=== PATIENT | female | born 1970 | race Caucasian/White ===

== ENCOUNTER 2024-06-19 17:53 | Emergency (ER) | payer OTHER, SELFPAY ==
--- NOTE | ~2024-06-19 | XR_ITS ---
EXAMINATION: XR FOOT, RIGHT CLINICAL INFORMATION: pain COMPARISON: None available. TECHNIQUE: AP, lateral, and oblique views of the right foot. FINDINGS: There is no fracture or dislocation. There is mild cortical irregularity and sclerosis along the lateral aspect of the first metatarsal bone of uncertain clinical significance/etiology. This may be related to prior bunion surgery. Clinical correlation is recommended. Joint spaces are maintained. Regional soft tissue is normal in appearance. XR/XR foot RT min 3V IMPRESSION: No fracture or dislocation. There is mild cortical irregularity and sclerosis along the lateral aspect of the first metatarsal bone of uncertain clinical significance/etiology. This may be related to prior bunion surgery. Clinical correlation is recommended. Electronically signed by: Bill Alfaro DO 06/19/2024 09:52 PM EST RP
--- OUTSIDE RECORDS SUMMARY | 2024-06-19 17:55 | XMS_ITS | Continuity of Care Document ---
Author Organization [facility] vices Address [address] [place] [address] Phone Care Team Providers Care Mechanic Industrial Truck Name Role Phone Generic Provider, [facility] Unavailable Unavailabl e Allergies, Adverse Reactions, Alerts Substance Reaction Status Criticality No Known Allergies Active No Inform ation Procedures Procedure Date Psychotherapy, 45 Minutes With Patient J Psych Dx Eval Psychotherapy, 30 Minutes With Patient A OFFICE/OUTPATIENT VISIT, [facility] Advance Directives Directive Yes / No Effective Date File Name No Information Encounters Encounter Description Practice Location Reason(s) For Visit Diagnoses Date Provider Providers Copied on Encounter [facility], [address] [place] [address], [facility], [place] tel:[phone] [facility] Adult Medicine No Information 0 Generic Provider [facility]. . Psychotherap y, 45 Minutes With Patient [facility], [address] [place] [address], [facility], tel:[phone] [facility] Behavioral Health Follow up visit (chief complaint) Major depressive disorder, recurrent, moderateAnxiety Opioid dependence 0-201 9 [address]Long Cintia. [address] [place], [address], [place]. tel:[phone] Psych Dx Eval [facility], [address] [place] [address], [facility], [place] tel:[phone] [facility] Behavioral Health anxiety (chief complaint) AnxietyOpioid dependence 4-201 9 [facility]Long Cintia. [address] [place] [address], [address], [place]. tel:[phone] Psychotherap y, 30 Minutes With Patient [facility], [address] [place], [address], [place] tel:[phone] [facility] Behavioral Health Consult (chief complaint) AnxietyOpioid dependence 9 Liz Cintia. [address] [place], [address], [place]. tel:[phone] OFFICE[facility]OUTPA TIENT VISIT, [facility], [address] [facility] [place], [address], [place] tel:[phone] [facility] Adult Medicine Fell in shower (chief complaint) Body mass index (BMI) 30.0-30.9, adultSyncope, unspecified syncope typeFrequent headachesPhysic al examScreening for lipid disordersScreen ing for thyroid disorderScreeni ng for diabetes mellitusMemory loss 9 No Information Family History Family Member Type Diagnosis Age At Onset No Information Payers Payer name Insurance type Covered republican ID Danika wise(s) Tobias [id number] Social History Type Description Quantity Date Captured [...] lives at home. She was [facility] and sent to neurology at but doesn't [...]
[2024-06-19 19:09] VITALS: BP 152/78; PULSE 76; RESP 18; TEMP 36.2; O2SAT 99; BMI 32.9
--- NOTE | 2024-06-19 19:13 | ED.LOWEXIN ---
HPI - Extremity Injury (Lower) General Chief Complaint: Extremity Injury, Lower Stated Complaint: rt heel/ankle sharp pain Time Seen by Provider: 06/19/24 19:18 Source: patient Limitations: no limitations History of Present Illness ED Provider: Zehra mendez PA-C HPI Narrative: 54-year-old female, who presents with right heel pain for 2 weeks. Pain originates over the plantar aspect of the heel and radiates upward toward the ankle. No preceding trauma, no overlying redness or swelling. Related Data Previous Rx's ?Medication ?Instructions ?Recorded meloxicam 15 mg tablet 15 mg PO DAILY #7 tabs 06/19/24 Allergies Allergy/AdvReac Type Severity Reaction Status Date / Time No Known Allergies Allergy Verified 06/19/24 19:26 Review of Systems Review of Systems: Yes all other systems are reviewed and are negative Constitutional: Constitutional: Denies fatigue and Denies fever(s) Musculoskeletal: Musculoskeletal: Denies arthralgias, Denies joint swelling, Denies numbness and Denies tingling Neurologic: Denies numbness and Denies tingling Endocrine: Endocrine: Denies fatigue PMF Past Medical History Attestation statement: The following information was validated with the patient. Social History Social History Advance Directives: No Advance Directives Information Provided: Yes Physical Exam Vital Signs: Vital Signs: Last Vital Signs Temp 97.2 F 06/19/24 19:09 Pulse 76 06/19/24 19:09 Resp 18 06/19/24 19:09 BP 152/78 H 06/19/24 19:09 Pulse Ox 99 06/19/24 19:09 O2 Del Method Room Air 06/19/24 19:09 BMI result Body Mass Index 32.9 Const: Other: Alert, well-appearing Orientation/consciousness: patient oriented x3 Resp: Other: Nonlabored respirations Cardio: Other: Normal peripheral perfusion Skin: Other: Warm dry no rash Neuro: Other: Antalgic gait secondary to foot pain General: patient oriented x3, no focal motor deficits and CN's II-XI intact bilaterally Extrem: Other: There was no swelling, erythema or warmth noted over the foot , full flexion and extension from the ankle, there was no deformity. Psych: Other: Calm cooperative Course Course Course Narrative: This is a rapid medical exam performed by Zehra Mendez PA-C. Patient is a 54-year-old female, who presents with right heel pain for 2 weeks. No preceding trauma, no overlying redness or swelling. On exam, again no warmth no erythema no swelling no deformity, we will obtain an x-ray, this is likely plantar fasciitis. The patient is hemodynamically stable and can return to the waiting room pending her full medical assessment. Medical Decision Making Medical Decision Making MDM Narrative: 54-year-old female, who presents with right heel pain for 2 weeks. Pain originates over the plantar aspect of the heel and radiates upward toward the ankle. No preceding trauma, no overlying redness or swelling. No relevant chronic issues History: Per patient I have considered the following differential diagnoses: Plantar fasciitis, bone spur/arthritis, septic effusion, fracture, dislocation Plan: This is likely plantar fasciitis, the patient does not wear supportive shoes, she walks around and Crocs. Tear on the side of caution we will obtain an x-ray, she could have significant arthritis and/or bone spur. Thought about septic effusion, however she has full flexion and extension of the ankle, there was no swelling or deformity. Unlikely to be a fracture or dislocation given no trauma. I have independently reviewed the following tests: X-ray right foot: No fracture, no dislocation no obvious bones spur Discharge Plan Discharge Clinical Impression: Plantar fasciitis, right Patient Disposition: Home, Self-Care Instructions: Plantar Fasciitis (ED), Plantar Fasciitis Exercises (ED) Additional Instructions: Your symptoms are likely due to plantar fasciitis. See home care instructions. You need to obtain a pair of supportive shoes such as running sneakers. Use the meloxicam as directed, this is an anti-inflammatory that we will help your pain. I have also provided you with exercises you can perform to help alleviate your discomfort. Follow up with your primary care provider as needed. Prescriptions: New meloxicam 15 mg tablet 15 mg PO DAILY Qty: 7 0RF Print Language: [place]
--- OUTSIDE RECORDS SUMMARY | 2024-06-19 20:08 | XMS_ITS | Continuity of Care Document ---
Author Organization [facility] vices Address [address] [place] [address] Phone Care Team Providers Care Spa Technician Name Role Phone Generic Provider, [facility] Unavailable Unavailabl e Allergies, Adverse Reactions, Alerts Substance Reaction Status Criticality No Known Allergies Active No Inform ation Procedures Procedure Date Psychotherapy, 45 Minutes With Patient J Psych Dx Eval Psychotherapy, 30 Minutes With Patient A OFFICE/OUTPATIENT VISIT, [facility] Advance Directives Directive Yes / No Effective Date File Name No Information Encounters Encounter Description Practice Location Reason(s) For Visit Diagnoses Date Provider Providers Copied on Encounter [facility], [address] [place] [address], [facility], [place] tel:[phone] [facility] Adult Medicine No Information 0 Generic Provider [facility]. . Psychotherap y, 45 Minutes With Patient [facility], [address] [place] [address], [facility], tel:[phone] [facility] Behavioral Health Follow up visit (chief complaint) Major depressive disorder, recurrent, moderateAnxiety Opioid dependence 0-201 9 Mario-Long Cintia. [address] [place], [address], [place]. tel:[phone] Psych Dx Eval [facility], [address] [place] [address], [facility], [place] tel:[phone] [facility] Behavioral Health anxiety (chief complaint) AnxietyOpioid dependence 4-201 9 Mario-Long Cintia. [address] [place] [address], [address], [place]. tel:[phone] Psychotherap y, 30 Minutes With Patient [facility], [address] [place], [address], [place] tel:[phone] [facility] Behavioral Health Consult (chief complaint) AnxietyOpioid dependence 9 Liz Cintia. [address] [place], [address], [place]. tel:[phone] OFFICE[facility]OUTPA [facility]ENT [facility], [facility] [address] [facility] [place] [place], [address], [place] tel:[phone] [facility] Adult Medicine Fell in shower (chief complaint) Body mass index (BMI) 30.0-30.9, adultSyncope, unspecified syncope typeFrequent headachesPhysic al examScreening for lipid disordersScreen ing for thyroid disorderScreeni ng for diabetes mellitusMemory loss 9 No Information Family History Family Member Type Diagnosis Age At Onset No Information Payers Payer name Insurance type Covered democrat ID Danika wise(s) Tobias [id number] Social History Type Description Quantity Date Captured [...] lives at home. She was seen by [facility] and sent to neurology at but [...]
--- NOTE | 2024-06-19 20:10 | PC.NURSE ---
triage for another pt was placed on this patient who had already been triaged. this was in error and has been removed.
[2024-06-19 20:56] VITALS: BP 152/78; PULSE 76; RESP 18; TEMP 36.2; O2SAT 99
== END 2024-06-19 21:03 | disposition home or self-care (01) ==
PROVIDERS: Emergency Provider Emergency Medicine
DX: M72.2 Plantar fascial fibromatosis (principal)
CPT/HCPCS: 73630; 99282; 99283

== ENCOUNTER 2024-08-25 13:01 | Emergency (ER) | payer OTHER, SELFPAY ==
--- NOTE | ~2024-08-25 | CT_ITS ---
CLINICAL HISTORY: CP, SOB, elevated D-dimer CT angiography chest with contrast. 3D Postprocessing. Comparison: None Findings: The heart size is normal. RV/LV ratio is normal. Unremarkable thoracic aorta and great vessels. No aneurysm. No pulmonary artery filling defects. The visualized thyroid and mediastinum are unremarkable. 4 mm right upper lobe nodule on image 19. No consolidation or pleural effusion. There is pancreatic volume loss. No acute abnormality of the visualized abdomen. The bones are intact. IMPRESSION: 1. No pulmonary artery embolism. 2. 4 mm right upper lobe nodule. If the patient is high risk, consider CT follow-up in 1 year. This document has been electronically signed by: Rajani Tran MD on 08/25/2024 14:57:20
--- NOTE | ~2024-08-25 | XR_ITS ---
CLINICAL HISTORY: cp 1 view chest x-ray Comparison: None Findings: No consolidation or effusion. Heart size is normal. No acute fracture. IMPRESSION: 1. No acute findings. This document has been electronically signed by: Rajani Tran MD on 08/25/2024 14:04:11
[2024-08-25 13:03] VITALS: BP 178/98; PULSE 105; O2SAT 100
--- NOTE | 2024-08-25 13:04 | ECG_ITS ---
Test Reason : CHEST PAIN Blood Pressure : */* mmHG Vent. Rate : 85 BPM Atrial Rate : 85 BPM P-R Int : 140 ms QRS Dur : 90 ms QT Int : 390 ms P-R-T Axes : 50 -31 24 degrees QTcB Int : 464 ms Normal sinus rhythm Left axis deviation Abnormal ECG When compared with ECG of 29-Mar-2003 16:32, QRS axis Shifted left Nonspecific T wave abnormality, improved in Lateral leads QT has lengthened Referred By: Generic ED Physician Electronically Signed By: CAROLYNN ARZATE
[2024-08-25 13:14] VITALS: BP 140/77; PULSE 90; RESP 20; TEMP 37.4; O2SAT 98; BMI 30.9
--- NOTE | 2024-08-25 13:14 | PC.NURSE ---
No EKG machine available to obtain <10min
--- NOTE | 2024-08-25 13:18 | ED_ITS ---
HPI - Chest Pain General Chief Complaint: Chest Pain Stated Complaint: CHEST PAIN Time Seen by Provider: 08/25/24 13:13 Source: patient, family and EMS Mode of arrival: EMS Limitations: no limitations History of Present Illness ED Provider: DR. Phoenix HPI narrative: This is a 54-year-old female came in by ambulance for evaluation of chest pain started since yesterday pain has been constant and got worse around 03:00 this morning pain is associated with some heaviness breath, patient also is complaining of headache, generalized body ache, joint ache, no coughing, no sneezing. No history of recent travel, no history of prolonged immobilization, lower extremity swelling or tenderness. No exposure to sick contacts. Related Data Previous Rx's ?Medication ?Instructions ?Recorded meloxicam 15 mg tablet 15 mg PO DAILY #7 tabs 06/19/24 Allergies Allergy/AdvReac Type Severity Reaction Status Date / Time No Known Allergies Allergy Verified 08/25/24 13:16 Review of Systems 2 Review of Systems: All other systems are reviewed and are negative Constitutional: Reports as per HPI and Reports no additional constitutional complaints Eyes: Reports as per HPI and Reports no additional eye complaints Reports system reviewed and no additional complaints, except as documented Cardiovascular: Reports as per HPI and Reports no additional cardiovascular complaints Respiratory: Reports as per HPI and Reports no additional respiratory complaints Gastrointestinal: Reports as per HPI and Reports no additional gastrointestinal complaints Genitourinary: Reports no additional female genitourinary complaints Musculoskeletal: Reports no additional musculoskeletal complaints Skin/Breast: Reports system reviewed and no additional complaints, except as docu Psychiatric: Reports no additional psychiatric complaints Endocrine: Reports no additional endocrine complaints Hematologic/Lymphatic: Reports no additional hematologic/lymphatic complaints Allergic/Immunologic: Reports no additional allergic/immunologic complaints Reports system reviewed and no additional complaints, except as documented and Reports Abnormal speech present [facility] Social History Social History Smoked in Last 30 Days: No Use of substances other than those prescribed or required for medical reasons: No Advance Directives: No Advance Directives Information Provided: Yes Physical Exam 2 Vital Signs: Vital Signs: Last Vital Signs Temp 99.3 F 08/25/24 14:59 Pulse 84 08/25/24 14:59 Resp 18 08/25/24 14:59 BP 131/67 08/25/24 14:59 Pulse Ox 98 08/25/24 14:59 O2 Del Method Room Air 08/25/24 14:59 BMI result Body Mass Index 30.9 Vital signs have been reviewed and appear to be correct. Blood pressure elevated. Heart rate normal. Respiratory rate normal. Temperature normal. Oxygen saturation normal. Appearance: Alert. Oriented X3. No acute distress. Head: Normal external exam. Normocephalic. Atraumatic. No Ramires signs noted. No raccoon eyes noted Eyes: PERRLA. EOMI. Conjunctiva and sclera normal. Eyelids normal. ENT: TM's Normal. Pharynx normal. Uvula midline. Moist mucous membranes. No trismus noted. No drooling noted. No muffled voice noted. Neck: Normal inspection. Neck supple. FROM. No adenopathy. Thyroid Normal. No meningeal signs. No neck mass noted. CVS: Normal heart rate and rhythm. Heart sound normal. No murmurs noted. Pulses normal throughout. Respiratory: No respiratory distress. Painless inspiration. Breath sounds normal. No wheezes/rales/rhonchi noted. Chest nontender. No accessory muscle usage noted or decreased air movement noted. Abdomen: Soft and nontender. Bowel sounds normal in all 4 quadrants. No distention noted. No organomegaly noted. No visible injury noted. Back: No CVA tenderness. Full range of motion noted. Skin: Skin warm and dry. Normal skin color. Normal skin turgor. No rashes/lesions/lacerations noted. Extremities: No lower extremity edema. Extremities exhibit normal range of motion. Extremities nontender. Neuro: Oriented X 3. Cranial nerve exam: II-XII are grossly intact No motor deficit. No sensory deficit. Reflexes normal. Course Reevaluation(s) Reevaluation #1: Atypical chest pain, physical exam reveals pain is originating from the chest wall. Negative CT angio for pulmonary embolism or any other intrathoracic pathology. Except for incidental 4 mm pulmonary nodule. ACS is not likely with negative troponin x2 and unremarkable EKG. Feels better with NSAIDs. 4 mm right upper lobe pulmonary nodule was incidentally found on the CT patient was instructed to follow-up with her PCP for follow-up. Time: 17:00 Medications Administered Discontinued Medications Generic Name Dose Route Start Last Admin Trade Name Freq PRN Reason Stop Dose Admin Ibuprofen 600 mg 08/25/24 17:12 08/25/24 17:22 Ibuprofen 600 Mg Tablet PO 08/25/24 17:13 600 mg ONCE ONE Administration Iohexol 65 ml 08/25/24 14:31 08/25/24 14:31 Iohexol 350 Mg/Ml 100 Ml Infus..Btl IV 08/25/24 14:32 65 ml ONCE ONE Administration Ondansetron HCl 4 mg 08/25/24 14:44 08/25/24 15:05 Ondansetron Hcl 4 Mg/2 Ml Vial IVPUSH 08/25/24 14:45 Not Given ONCE ONE Medical Decision Making Differential Diagnosis Differential Diagnoses: The differential diagnosis associated with the presentation includes (ACS, pulmonary embolism, pneumonia, pneumothorax, pleural effusion, chest wall pain, electrolyte derangement, severe anemia.) Admission/Observation Consideration of admission/observation: Escalation of care including admission/observation considered Lab Data MDM Lab Attestation statement: I reviewed the patient's lab results. 08/25/24 13:22 08/25/24 13:22 Labs: Lab Results 08/25/24 08/25/24 08/25/24 Range/Units 13:22 13:25 16:35 WBC 5.2 (4.8-10.8) X10*3/uL RBC 4.16 L (4.20-5.50) X10*6/uL Hgb 12.8 (12.0-16.0) g/dl Hct 36.6 L (37.0-47.0) % MCV 88.0 (80.0-98.0) fL MCH 30.8 (27.0-33.0) pg MCHC 35.0 (31.0-35.0) g/dl RDW 12.3 (11.0-16.0) % Plt Count 231 (160-400) X10*3/uL MPV 9.9 (9.4-12.3) fL Immature Gran % (Auto) 0.4 (0.0-0.4) % Neut % (Auto) 81.7 H (45-73) % Lymph % (Auto) 7.9 L (20-40) % [place] % (Auto) 9.6 (2-11) % Eos % (Auto) 0.0 (0-4) % Baso % (Auto) 0.4 (0-2) % Lymph # (Auto) 0.4 L (1.2-4.9) X10*3/uL [place] # (Auto) 0.5 (0.1-1.2) X10*3/uL Eos # (Auto) 0.0 (0.0-0.4) X10*3/uL Baso # (Auto) 0.0 (0.0-0.2) X10*3/uL Abs Immat Gran (auto) 0.02 (0.00-0.03) X10*3/uL Absolute Neuts (auto) 4.3 (2.0-8.3) x10*3/uL Absolute Nucleated RBC 0.000 (0.0-0.012) X10*3/uL Nucleated RBC % (auto) 0.0 (0.0-0.2) /100WBC D-Dimer High Sensitivty 261 NG/ML Sodium 139 (135-145) mmol/L Potassium 3.6 (3.3-5.1) mmol/L Chloride 106 (96-108) mmol/L Carbon Dioxide 24 (22-29) mmol/L Anion Gap 13 (12-20) BUN 8 L (9-16) mg/dL Creatinine 0.76 (0.5-1.4) mg/dL Estim Creat Clear Calc 74.7 Estimated GFR > 60 Random Glucose 132 H (60-115) mg/dL Calcium 9.0 (8.4-10.2) mg/dL Total Bilirubin 0.5 (0.0-1.0) mg/dL Direct Bilirubin 0.2 (0.0-0.5) mg/dL AST 24 (5-31) U/L ALT 20 (0-31) U/L Alkaline Phosphatase 107 (39-117) U/L Troponin I High Sens 4.3 5.0 (<3.5-17.0) ng/L B-Natriuretic Peptide 34 (<100) pg/mL Total Protein 7.8 (6.5-8.0) g/dL Albumin 4.0 (3.5-5.0) g/dL Lipase 7 L (8-78) U/L Influenza Type A (PCR) NEGATIVE (Negative) Influenza Type B (PCR) NEGATIVE (Negative) RSV RNA Qual (PCR) NEGATIVE (Negative) SARS-CoV-2 RNA (RT-PCR) NEGATIVE (Negative) Independent Interpretation I performed an independent interpretation of an: CT Scan (CT angio chest:1. No pulmonary artery embolism. 2. 4 mm right upper lobe nodule. If the patient is high risk, consider CT follow-up in 1 year.) Radiology Impression Discussion of test interpretation with radiology: I have reviewed the radiologist's reading. Discharge Plan Discharge Clinical Impression: Atypical chest pain, Nodule of upper lobe of right lung Patient Disposition: Still a Patient Instructions: Pulmonary Nodules (ED), Chest Wall Pain (ED) Prescriptions: No Action meloxicam 15 mg tablet 15 mg PO DAILY Qty: 7 0RF Print Language: Armenian
[2024-08-25 13:25] LABS: MANUAL DIFF FLAG NO
[2024-08-25 13:27] LABS: Basophils Percent Auto 0.4 % (0-2); Hematocrit 36.6 % (37.0-47.0); Hemoglobin 12.8 g/dl (12.0-16.0); Imm Gran Abs Auto 0.02 X10*3/uL (0.00-0.03); Imm Gran Pct Auto 0.4 % (0.0-0.4); Lymphocytes Absolute Auto 0.4 X10*3/uL (1.2-4.9); Lymphocytes Percent Auto 7.9 % (20-40); Mean Corpuscular Hemoglobin 30.8 pg (27.0-33.0); Mean Platelet Volume 9.9 fL (9.4-12.3); Monocytes Absolute Auto 0.5 X10*3/uL (0.1-1.2); Monocytes Percent Auto 9.6 % (2-11); Neutrophils Absolute Auto 4.3 x10*3/uL (2.0-8.3); Neutrophils Percent Auto 81.7 % (45-73); Platelet Count 231 X10*3/uL (160-400); Red Blood Count 4.16 X10*6/uL (4.20-5.50); Red Cell Distribution Width 12.3 % (11.0-16.0); White Blood Count 5.2 X10*3/uL (4.8-10.8)
--- OUTSIDE RECORDS SUMMARY | 2024-08-25 13:27 | XMS_ITS | Continuity of Care Document ---
Author Organization [facility] vices Address [address] [place] [address] Phone Care Team Providers Care Manager Of Security Name Role Phone Generic Provider, [facility] Unavailable Unavailabl e Allergies, Adverse Reactions, Alerts Substance Reaction Status Criticality No Known Allergies Active No Inform ation Procedures Procedure Date Psychotherapy, 45 Minutes With Patient J Psych Dx Eval Psychotherapy, 30 Minutes With Patient A OFFICE/OUTPATIENT VISIT, [facility] Advance Directives Directive Yes / No Effective Date File Name No Information Encounters Encounter Description Practice Location Reason(s) For Visit Diagnoses Date Provider Providers Copied on Encounter [facility], [address] [place] [address], [facility] [place], [place] tel:[phone] [facility] Adult Medicine No Information 0 Generic Provider [facility]. . Psychotherap y, 45 Minutes With Patient [facility], [address] [place] [address], [facility] [place], tel:[phone] [facility] Behavioral Health Follow up visit (chief complaint) Major depressive disorder, recurrent, moderateAnxiety Opioid dependence 0-201 9 [facility] [facility]. [address] [place], [address], [place]. tel:[phone] Psych Dx Eval [facility], [address] [place] [address], [facility] [place], [place] tel:[phone] [facility] Behavioral Health anxiety (chief complaint) AnxietyOpioid dependence 4-201 9 [facility]. [address] [place] [address], [address], [place]. tel:[phone] Psychotherap y, 30 Minutes With Patient [facility], [address] [place], [address], [place] tel:[phone] [facility] Behavioral Health Consult (chief complaint) AnxietyOpioid dependence 9 Liz [address] [place], [address], [place]. tel:[phone] OFFICE/OUTPA TIENT VISIT, [facility], [address] [facility] [place], [address], [place] tel:[phone] [facility] Adult Medicine Fell in shower (chief complaint) Body mass index (BMI) 30.0-30.9, adultSyncope, unspecified syncope typeFrequent headachesPhysic al examScreening for lipid disordersScreen ing for thyroid disorderScreeni ng for diabetes mellitusMemory loss 9 No Information Family History Family Member Type Diagnosis Age At Onset No Information Payers Payer name Insurance type Covered libertarian ID Danika wise(s) Tobias [id number] Social History Type Description Quantity Date Captured [...] lives at home. She [facility] and sent to neurology at but doesn't [...]
[2024-08-25 13:34] LABS: D Dimer High Sensitivity 261 NG/ML
[2024-08-25 13:47] LABS: Alanine Aminotransferase 20 U/L (0-31); Alkaline Phosphatase 107 U/L (39-117); Anion Gap 13 (12-20); Aspartate Amino Transferase 24 U/L (5-31); Bilirubin Direct 0.2 mg/dL (0.0-0.5); Bilirubin Total 0.5 mg/dL (0.0-1.0); Blood Urea Nitrogen 8 mg/dL (9-16); Carbon Dioxide 24 mmol/L (22-29); Chloride 106 mmol/L (96-108); Creatinine Clr Calc Pharmacy 74.7; Estimated Glomerular Filt Rate > 60; Glucose Random 132 mg/dL (60-115); Lipase 7 U/L (8-78); Potassium 3.6 mmol/L (3.3-5.1); Sodium 139 mmol/L (135-145); Total Protein 7.8 g/dL (6.5-8.0)
[2024-08-25 13:54] LABS: Troponin-I High Sensitivity 4.3 ng/L (<3.5-17.0)
[2024-08-25 14:02] LABS: B Type Natriuretic Peptide 34 pg/mL (<100)
[2024-08-25 14:10] LABS: Influenza A PCR NEGATIVE (Negative); Influenza B PCR NEGATIVE (Negative); Resp Syncy Virus RNA Qual PCR NEGATIVE (Negative); SARS COV2 PCR INHOUSE NEGATIVE (Negative)
[2024-08-25] MEDS: iohexoL 350 MG/ML 100 ML INFUS..BTL 65 ML IV (14:31)
[2024-08-25 14:59] VITALS: BP 131/67; PULSE 84; RESP 18; TEMP 37.4; O2SAT 98
--- NOTE | 2024-08-25 15:01 | PC.NURSE ---
offered zofran, patient declined at this time states that she has some side effects w/ nausea medications
[2024-08-25] MEDS: Ibuprofen 600 MG TABLET PO (17:22)
[2024-08-25 17:41] LABS: Appearance Urine Clear; Color Urine Yellow; Glucose Urine UA Negative (Negative); Leukocyte Esterase Urine Negative (Negative); Nitrite Urine Negative (Negative); Specific Gravity - Urine >= 1.030 (1.005-1.025); UMIC TRIGGER UACC YES; Urine Blood Large (3+) (Negative); Urine Ketones Negative (Negative); Urine Protein Negative (Neg-Trace)
[2024-08-25 17:55] LABS: Bacteria Urine None Seen (None Seen); Hyaline Casts Urine 0-2 /LPF (0-2); RBC Urine >20 /HPF (0-2); Squamous Epithelial Cell Urine 0-2 /HPF (0-2); WBC Urine 0-5 /HPF (0-5)
[2024-08-25 18:02] VITALS: BP 142/71; PULSE 66; RESP 15; TEMP 37; O2SAT 99
--- NOTE | 2024-08-25 18:03 | MHC.EDTECH ---
Hourly round and vitals completed, she is resting quietly on her bed within call ziegler on her reach.
[2024-08-25 19:00] VITALS: BP 142/71; PULSE 66; RESP 15; TEMP 37; O2SAT 99
== END 2024-08-25 19:00 | disposition home or self-care (01) ==
PROVIDERS: Emergency Provider Emergency Medicine
DX: R07.89 Other chest pain (principal); R91.1 Solitary pulmonary nodule; R06.02 Shortness of breath; Z03.818 Encounter for observation for suspected exposure to other biological agents ruled out; Z79.899 Other long term (current) drug therapy
CPT/HCPCS: 0241U; 36415; 71045; 71275; 80048; 80076; 81001; 83690; 83880; 84484; 85025; 85379; 93005; 96374; 99284; 99285; Q9967

== ENCOUNTER → 2024-08-25 13:04 | Outpatient (BNV) | payer OTHER, SELFPAY | PROVIDERS: Emergency Provider Emergency Medicine; Visit Provider Internal Medicine | DX: R94.31 Abnormal electrocardiogram [ECG] [EKG] (principal); R07.9 Chest pain, unspecified | CPT/HCPCS: 93010 ==

== ENCOUNTER → 2024-08-25 13:13 | Outpatient (BNV) | payer OTHER, SELFPAY | PROVIDERS: Emergency Provider Emergency Medicine; Visit Provider Radiology Diagnostic Radiology | DX: R91.1 Solitary pulmonary nodule (principal); R07.9 Chest pain, unspecified | CPT/HCPCS: 71045; 71275 ==

== ENCOUNTER 2025-01-14 19:26 | Emergency (ER) | payer SELFPAY ==
--- NOTE | ~2025-01-14 | XR_ITS ---
CLINICAL HISTORY: pain 3 views left foot Comparison: None. Findings: No fractures or dislocations. No joint effusion. No significant arthritic change. There is a fully threaded screw located obliquely in the proximal 1st metatarsal. No breakage or displacement of hardware. No radiopaque foreign body. Impression: Unremarkable left foot. No acute skeletal abnormality. 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 This document has been electronically signed by: Willie Camacho MD on 01/14/2025 20:58:54
--- NOTE | ~2025-01-14 | XR_ITS ---
CLINICAL HISTORY: pain 3 views right foot Comparison: None Findings: No acute fractures or dislocations No joint effusion No significant arthritic change No radiopaque foreign body Impression: Stable healed osteotomy of the 1st metatarsal. No acute skeletal abnormality. This document has been electronically signed by: Willie Camacho MD on 01/14/2025 20:59:17
[2025-01-14 19:41] VITALS: BP 168/79; PULSE 78; RESP 20; TEMP 36.3; O2SAT 99; BMI 31.2
--- NOTE | 2025-01-14 19:42 | ED.GENADULT ---
HPI - General Adult General Chief complaint: Extremity Problem Stated complaint: Both feet swelling + pain Time Seen by Provider: 01/14/25 22:11 Source: patient Mode of arrival: ambulatory Limitations: no limitations History of Present Illness ED Provider: Dr. Carrie Rollins HPI narrative: patient comes to the emergency room complaining of superficial veins in her calves and thighs bilaterally that are very prominent but do not hurt. Also, patient complaining of pain in her feet. Patient states that when she wakes up and starts walking that is when it hurts the most especially in her heels. Patient states that throughout the day if she is walking she is okay. But if she sits to rest and then gets up and walks, the pain returns. Patient denies any significant lower extremity swelling, denies any chest pain or palpitations. Related Data Previous Rx's ?Medication ?Instructions ?Recorded meloxicam 15 mg tablet 15 mg PO DAILY #7 tabs 06/19/24 ibuprofen 600 mg tablet 600 mg PO TID PRN fever or pain 01/14/25 #30 tabs Allergies Allergy/AdvReac Type Severity Reaction Status Date / Time No Known Allergies Allergy Verified 01/14/25 19:42 Review of Systems Review of Systems: Constitutional : No Weight loss, No Fever, No Chills, No Night Sweats, No Fatigue, No Malaise ENT/Mouth : No Hearing loss, No Ear Pain, No Nasal Congestion, No Sinus Pain, No Hoarseness, No sore throat, No Rhinorrhea, No Swallowing Difficulty Eyes: No Eye Pain, No Swelling, No Redness, No Foreign Body, No Discharge, No Vision Changes Cardiovascular : No Chest Pain, No SOB, No Dyspnea on Exertion, No Orthopnea, No Edema, No Palpitations Respiratory : No Cough, No Sputum, No Wheezing, No Smoke Exposure, No Dyspnea Gastrointestinal : No Nausea, No Vomiting, No Diarrhea, No Constipation, No abdominal Pain, No Hematochezia, No Melena Genitourinary : no irregular bleeding, No Dysuria, No Urinary Frequency, No Hematuria, No Urinary Incontinence, No Urgency, No Flank Pain, No Urinary Flow Changes, No Hesitancy Musculoskeletal : Complaining of bilateral heel pain worse in the mornings with the 1st few steps, also complaining of prominent veins in both lower extremities calves and thighs, not painful. Skin : No Skin Lesions, No rash Neuro : No Weakness, No Numbness, No Paresthesias, No Loss of Consciousness, No Dizziness, No Headache Psych : No Anxiety/Panic, No Depression, No SI/HI/AH/VH, No Social Issues, Heme/Lymph: No Bruising, No Bleeding,No Lymphadenopathy Endocrine : No Polyuria, No Polydipsia, No Temperature Intolerance PMFSH Social History Social History Advance Directives: No Advance Directives Information Provided: No Physical Exam ED Vital Signs: Vital Signs - 24 hr 01/14/25 19:41 01/14/25 22:28 Temperature 97.4 F 97.4 F Pulse Rate 78 78 Respiratory Rate 20 20 Blood Pressure 168/79 H 168/79 H Pulse Oximetry 99 99 Oxygen Delivery Method Room Air Room Air BMI result Body Mass Index 31.2 Const Other: Appearance: Alert. Oriented X3. No acute distress. Eyes: Pupils equal, round and reactive to light. ENT: Pharynx normal. Neck: Normal inspection. Neck supple. No lymph nodes noted. No crepitus CVS: Normal heart rate and rhythm. Pulses normal. Normal S1 and S2 Respiratory: No respiratory distress. Breath sounds normal. No Wheezing. No rales Abdomen: Soft and nontender. No rigidity. No distention. Skin: Skin warm and dry. Normal skin color. Normal skin turgor. Extremities: No lower extremity edema. No Lacerations. No Rash Patient has flat feet, very minimal arch support. No swelling in feet ankles or calves. Patient has prominent varicose veins in both lower extremities, ankles to thighs, no erythema, no pain to palpation on the veins Neuro: Oriented X 3. No motor deficit. No sensory deficit. Moving all extremities. No slurred speech. CN 2 through 12 grossly intact Psych: calm, cooperative, normal affect Course Course Course Narrative: This is an RME: Additional HPI, ROS, PE not included below will be deferred to primary provider. RME assessment and note performed by: Jana Harvey PA-C This is a [id number]-female who presents to the ER with complaints of BL feet pain. Also reporting increased bruising in BL legs. No calf pain. Was seen in 06/2024 for plantar fasciitis. Reporting difficulty with ambulation secondary to pain. Plan: xrays, labs, further Er eval needed Medical Decision Making Medical Decision Making [facility] Narrative: I discussed the physical exam with the patient. Patient has 2 conditions, 1 is plantar fasciitis. Discussed with the patient that she will need eventually orthotics. Patient does not have a PCP yet. In the meantime patient advised to get [id number] orthotics and patient was taught how to do stretching exercises before she walks 1st thing in the morning and to use ibuprofen PRN and ice and how to roll her feet with golf balls or tennis balls also, I discussed with the patient that the varicose veins need to be followed up with either her primary care physician, nonemergent or with vascular surgery. At this time, based on physical exam And patient's symptoms, DVT is not suspected. Lab Data [facility] Lab Attestation statement: I reviewed the patient's lab results. 01/14/25 20:22 01/14/25 20:22 Labs: Lab Results 01/14/25 Range/Units 20:22 WBC 5.1 (4.8-10.8) X10*3/uL RBC 4.08 L (4.20-5.50) X10*6/uL Hgb 12.5 (12.0-16.0) g/dl Hct 36.8 L (37.0-47.0) % MCV 90.2 (80.0-98.0) fL MCH 30.6 (27.0-33.0) pg MCHC 34.0 (31.0-35.0) g/dl RDW 12.4 (11.0-16.0) % Plt Count 262 (160-400) X10*3/uL MPV 9.9 (9.4-12.3) fL Immature Gran % (Auto) 0.4 (0.0-0.4) % Neut % (Auto) 53.9 (45-73) % Lymph % (Auto) 36.3 (20-40) % [place] % (Auto) 8.0 (2-11) % Eos % (Auto) 1.0 (0-4) % Baso % (Auto) 0.4 (0-2) % Lymph # (Auto) 1.9 (1.2-4.9) X10*3/uL [place] # (Auto) 0.4 (0.1-1.2) X10*3/uL Eos # (Auto) 0.1 (0.0-0.4) X10*3/uL Baso # (Auto) 0.0 (0.0-0.2) X10*3/uL Abs Immat Gran (auto) 0.02 (0.00-0.03) X10*3/uL Absolute Neuts (auto) 2.8 (2.0-8.3) x10*3/uL Absolute Nucleated RBC 0.000 (0.0-0.012) X10*3/uL Nucleated RBC % (auto) 0.0 (0.0-0.2) /100WBC PT 11.4 (10.9-12.4) SEC INR 1.0 (0.9-1.1) Sodium 143 (135-145) mmol/L Potassium 3.7 (3.3-5.1) mmol/L Chloride 107 (96-108) mmol/L Carbon Dioxide 29 (22-29) mmol/L Anion Gap 11 L (12-20) BUN 19 H (9-16) mg/dL Creatinine 0.91 (0.5-1.4) mg/dL Estim Creat Clear Calc 62.8 Estimated GFR > 60 Random Glucose 114 (60-115) mg/dL Calcium 8.9 (8.4-10.2) mg/dL Total Bilirubin 0.3 (0.0-1.0) mg/dL AST 24 (5-31) U/L ALT 24 (0-31) U/L Alkaline Phosphatase 150 H (39-117) U/L Total Protein 7.7 (6.5-8.0) g/dL Albumin 4.3 (3.5-5.0) g/dL Independent Interpretation I performed an independent interpretation of an: Plain X-Ray Interpretation: No acute fractures or dislocations No joint effusion No significant arthritic change No radiopaque foreign body Impression: Stable healed osteotomy of the 1st metatarsal. No acute skeletal abnormality. No fractures or dislocations. No joint effusion. No significant arthritic change. There is a fully threaded screw located obliquely in the proximal 1st metatarsal. No breakage or displacement of hardware. No radiopaque foreign body. Impression: Unremarkable left foot. No acute skeletal abnormality. 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 Discharge Plan Discharge Clinical Impression: Plantar fasciitis, Varicose veins of calf Patient Disposition: Home, Self-Care Instructions: Plantar Fasciitis (ED), Venous Insufficiency (DC) Additional Instructions: when you go to the pharmacy, please ask for insoles for plantar fasciitis from Dr. Harman'kriss or any other brand. Do Foot stretching exercises in the morning before getting out of bed. Please follow-up with your primary care physician tomorrow. If you have any worsening or new symptoms, please return to the emergency room or call 911 Prescriptions: New ibuprofen 600 mg tablet 600 mg PO TID PRN (Reason: fever or pain) Qty: 30 0RF No Action meloxicam 15 mg tablet 15 mg PO DAILY Qty: 7 0RF Referrals: Naun Fernandez MD [Physician, Vascular Surgery] Referral Note: varicose veins Interventions: ED Discharge Assessment Last Done: 01/14/25 22:28 Print Language: Macedonian
[2025-01-14 20:27] LABS: MANUAL DIFF FLAG NO
[2025-01-14 20:30] LABS: Hematocrit 36.8 % (37.0-47.0); Hemoglobin 12.5 g/dl (12.0-16.0); Imm Gran Abs Auto 0.02 X10*3/uL (0.00-0.03); Imm Gran Pct Auto 0.4 % (0.0-0.4); Lymphocytes Absolute Auto 1.9 X10*3/uL (1.2-4.9); Mean Corpuscular HGB Conc 34.0 g/dl (31.0-35.0); Mean Corpuscular Hemoglobin 30.6 pg (27.0-33.0); Mean Corpuscular Volume 90.2 fL (80.0-98.0); NRBC Abs Auto 0.000 X10*3/uL (0.0-0.012); NRBC Pct Auto 0.0 /100WBC (0.0-0.2); Platelet Count 262 X10*3/uL (160-400); Red Blood Count 4.08 X10*6/uL (4.20-5.50); White Blood Count 5.1 X10*3/uL (4.8-10.8)
[2025-01-14 20:35] LABS: INTERNATIONAL NORM RATIO 1.0 (0.9-1.1); Prothrombin Time 11.4 SEC (10.9-12.4)
[2025-01-14 20:42] LABS: Alanine Aminotransferase 24 U/L (0-31); Albumin Level 4.3 g/dL (3.5-5.0); Alkaline Phosphatase 150 U/L (39-117); Anion Gap 11 (12-20); Aspartate Amino Transferase 24 U/L (5-31); Blood Urea Nitrogen 19 mg/dL (9-16); Calcium 8.9 mg/dL (8.4-10.2); Carbon Dioxide 29 mmol/L (22-29); Chloride 107 mmol/L (96-108); Creatinine Clr Calc Pharmacy 62.8; Estimated Glomerular Filt Rate > 60; Potassium 3.7 mmol/L (3.3-5.1); Sodium 143 mmol/L (135-145); Total Protein 7.7 g/dL (6.5-8.0)
[2025-01-14 22:28] VITALS: BP 168/79; PULSE 78; RESP 20; TEMP 36.3; O2SAT 99
[2025-01-14 22:43] LABS: B Type Natriuretic Peptide 21 pg/mL (<100)
== END 2025-01-14 22:37 | disposition home or self-care (01) ==
PROVIDERS: Physician Assistant Medical; Emergency Provider Emergency Medicine
DX: M72.2 Plantar fascial fibromatosis (principal); I83.12 Varicose veins of left lower extremity with inflammation; I83.11 Varicose veins of right lower extremity with inflammation; R60.0 Localized edema; M79.672 Pain in left foot; M79.671 Pain in right foot; R26.2 Difficulty in walking, not elsewhere classified
CPT/HCPCS: 36415; 73630; 80053; 83880; 85025; 85610; 99282; 99283

== ENCOUNTER → 2025-01-14 19:42 | Outpatient (BNV) | payer OTHER, SELFPAY | PROVIDERS: Visit Provider Radiology Diagnostic Radiology | DX: M79.671 Pain in right foot (principal); M79.672 Pain in left foot | CPT/HCPCS: 73630 ==

== ENCOUNTER 2025-03-19 10:24 | Outpatient (REF) | payer OTHER, SELFPAY ==
--- OUTSIDE RECORDS SUMMARY | 2019-09-11 11:20 | XMS_ITS | Continuity of Care Document ---
Author Organization [facility] vices Address [address] [place] [address] Phone Care Team Providers Care Community Sports Coordinator Name Role Phone Generic Provider, [facility] Unavailable Unavailabl e Allergies, Adverse Reactions, Alerts Substance Reaction Status Criticality No Known Allergies Active No Inform ation Procedures Procedure Date Psychotherapy, 45 Minutes With Patient J Psych Dx Eval Psychotherapy, 30 Minutes With Patient A OFFICE/OUTPATIENT VISIT, [facility] Advance Directives Directive Yes / No Effective Date File Name No Information Encounters Encounter Description Practice Location Reason(s) For Visit Diagnoses Date Provider Providers Copied on Encounter [facility], [address] [place] [address], [facility], [place] tel:[phone] [facility] Adult Medicine No Information 0 Generic Provider [facility]. . Psychotherap y, 45 Minutes With Patient [facility], [address] [place] [address], [facility], tel:[phone] [facility] Behavioral Health Follow up visit (chief complaint) Major depressive disorder, recurrent, moderateAnxiety Opioid dependence 0-201 9 [address]Long Cintia. [address] [place], [address], [place]. tel:[phone] Psych Dx Eval [facility], [address] [place] [address], [address], [place] tel:[phone] [facility] Behavioral Health anxiety (chief complaint) AnxietyOpioid dependence 4-201 9 [address]Long Cint[address]. [address] [place] [address], [address], [place]. tel:[phone] Psychotherap y, 30 Minutes With Patient [facility], [address] [place], [address], [place] tel:[phone] [facility] Behavioral Health Consult (chief complaint) AnxietyOpioid dependence 9 Liz Cintia. [address] [place], [address], [place]. tel:[phone] [facility] [address] [facility] [place], [address], [place] tel:[phone] [facility] Adult Medicine Fell in shower (chief complaint) Body mass index (BMI) 30.0-30.9, adultSyncope, unspecified syncope typeFrequent headachesPhysic al examScreening for lipid disordersScreen ing for thyroid disorderScreeni ng for diabetes mellitusMemory loss 9 No Information Family History Family Member Type Diagnosis Age At Onset No Information Payers Payer name Insurance type Covered constitution party ID Danika wise(s) Tobias [id number] Social History Type Description Quantity Date Captured [...] lives at home. She was seen by [facility] and sent to neurology at but doesn't [...]
--- NOTE | ~2025-03-19 | US_ITS ---
EXAMINATION: US LOWER EXTREMITY VENOUS (REFLUX EXAM), BILATERAL CLINICAL INFORMATION: Varices. COMPARISON: None. TECHNIQUE: Color flow triplex imaging and compression Doppler was performed to evaluate both the deep and the superficial systems bilaterally. To evaluate the superficial system, the examination was performed in the upright position. Color-flow Doppler ultrasound and compression ultrasound were utilized. In addition, maneuvers were utilized to demonstrate reflux. FINDINGS: 1. DEEP VENOUS ULTRASOUND OF THE RIGHT LOWER EXTREMITY: Common Femoral Vein: Compressible, normal respiratory variation and augmented flow. Femoral Vein: Compressible, normal color flow and augmentation. Popliteal Vein: Compressible, normal augmentation. Deep Reflux: There is no evidence of reflux in the deep system in either the common femoral vein, superficial femoral or the popliteal vein. There is no evidence of a Minor's cyst. 2. SUPERFICIAL ULTRASOUND WITH DOPPLER OF RIGHT LOWER EXTREMITY: GREAT SAPHENOUS VEIN: Saphenofemoral Junction: 0.7 cm; Reflux: 0 ms Proximal Thigh: 0.5 cm; Reflux: 0 ms Mid Thigh: 0.3 cm; Reflux: 0 ms Distal Thigh: 0.3 cm; Reflux: 0 ms At Knee: 0.2 cm; Reflux: 1816 ms Proximal Calf: 0.2 cm; Reflux: 1760 ms Mid Calf: 0.2 cm; Reflux: 0 ms Distal Calf: 0.3 cm; Reflux: 0 ms DUPLICATED MEDIAL GREAT SAPHENOUS VEIN: Diameter: None imaged Reflux: NA DUPLICATED LATERAL GREAT SAPHENOUS VEIN: Diameter: 0.3 cm. Reflux: NA SMALL SAPHENOUS VEIN: Saphenopopliteal Junction: 0.3 cm; Reflux: 0 ms Proximal: 0.1 cm; Reflux: 0 ms Distal: 0.3 cm; Reflux: 0 ms VEIN OF GIACOMINI: Size: 0.3 cm. Reflux: NA PERFORATORS: Location: Small saphenous vein mid segment. Great saphenous vein proximal and distal calf. Size: 0.1-0.3 cm. Reflux: NA VARICOSITIES: Location: None imaged. Size: NA Reflux: NA 3. DEEP VENOUS ULTRASOUND OF THE LEFT LOWER EXTREMITY: Common Femoral Vein: Compressible, normal respiratory variation and augmented flow. Femoral Vein: Compressible, normal color flow and augmentation. Popliteal Vein: Compressible, normal augmentation. Deep Reflux: There is no evidence of reflux in the deep system in either the common femoral vein, superficial femoral or the popliteal vein. There is no evidence of a Minor's cyst. 4. SUPERFICIAL ULTRASOUND WITH DOPPLER OF LEFT LOWER EXTREMITY: GREAT SAPHENOUS VEIN: Saphenofemoral Junction: 0.8 cm; Reflux: 0 ms Proximal Thigh: 0.4 cm; Reflux: 0 ms Mid Thigh: 0.2 cm; Reflux: 0 ms Distal Thigh: 0.2 cm; Reflux: 0 ms At Knee: 0.2 cm; Reflux: 0 ms Proximal Calf: 0.1 cm; Reflux: 0 ms Mid Calf: 0.1 cm; Reflux: 0 ms Distal Calf: 0.1 cm; Reflux: 0 ms DUPLICATED MEDIAL GREAT SAPHENOUS VEIN: Diameter: None imaged Reflux: NA DUPLICATED LATERAL GREAT SAPHENOUS VEIN: Diameter: 0.4 cm. Reflux: NA SMALL SAPHENOUS VEIN: Saphenopopliteal Junction: 0.2 cm; Reflux: 0 ms Proximal: 0.1 cm; Reflux: 0 ms Distal: 0.1 cm; Reflux: 0 ms VEIN OF GIACOMINI: Size: 0.1 cm. Reflux: NA PERFORATORS: Location: Great saphenous vein mid calf. Size: 0.2 cm. Reflux: NA VARICOSITIES: Location: None Imaged Size: NA Reflux: NA US/US venous duplex LE BI IMPRESSION: Right: Venous insufficiency, great saphenous vein at the knee and below the knee. Perforators without reflux. Left: No venous insufficiency. Perforators without reflux. Electronically signed by: Sreekanth Gomez MD 03/19/2025 12:03 PM EDT
--- OUTSIDE RECORDS SUMMARY | 2025-03-19 13:14 | XMS_ITS | Clinical Summary ---
Author Organization [employer] Address [address] [place] [address] Care Team Providers Care Link Trainer Maintenance Worker Name Role Phone Unavailable Primary Care Provider Unavailabl e Encounters Date Type Department Care Team Description 01/14/2025 Telephone [facility] MEDICINE [address] [place] [address] Raghavendra Arthur MD New Patient from Last 3 Months Social History Tobacco Use Types Packs/Day Years Used Date Smoking Tobacco: Never Assessed Comments Unknown Sex and Gender Information Value Date Recorded Sex Assigned at Not on file Legal Sex Female 10:57 AM EDT Gender Identity Not on file Sexual Orientation Not on file Plan of Treatment Health Maintenance Due Date Last Done Comments CT Colonography 1970 Colonoscopy 1970 Colorectal Cancer Screening 1970 Depression Screening 1970 FIT DNA/Cologuard 1970 FIT 1970 FOBT 1970 HIV Screening 1970 SDOH Screening 1970 Sigmoidoscopy 1970 Disability Screening 1970 Alcohol/Substance Use Screening 1982 Tobacco Screening 1982 Hepatitis C Screening 1988 DTaP/Tdap/Td Vaccines (1 - Tdap) 1989 Hepatitis B Vaccines (1 of 3 - 19+ 3-dose series) 1989 Pap Smear 1991 Cervical Cancer Screening 2000 HPV/Cotest 2000 Mammogram 2010 Pneumococcal Vaccine: 50+ Ye ars (1 of 1 - PCV) 2020 Zoster Vaccines (1 of 2) 2020 COVID-19 Vaccine (1 - 2023-2 5 season) 2025 Influenza Vaccine (#1) 2025 RSV Patients and Pa tients Aged 60 years or older (1 - 1-dose 75+ series) 2045 HIB Vaccines Aged Out No longer eligi ble based on patient's age to complete this topic HPV Vaccines Aged Out No longer eligi ble based on patient's age to complete this topic Hepatitis A Vaccines Aged Out No long er eligible based on patient's age to complete this topic IPV Vaccines Aged Out No longer eligi ble based on patient's age to complete this topic Meningococcal B Vaccine Aged Out No l onger eligible based on patient's age to complete this topic Meningococcal Vaccine Aged Out No marylin sumi eligible based on patient's age to complete this topic RSV under 20 months Aged Out No longe r eligible based on patient's age to complete this topic Rotavirus Vaccines Aged Out No longer eligible based on patient's age to complete this topic
== END 2025-03-19 10:25 | disposition home or self-care (01) ==
LOC: HO.US 10:24
PROVIDERS: Visit Provider Surgery Vascular Surgery
DX: I83.12 Varicose veins of left lower extremity with inflammation (principal)
CPT/HCPCS: 93970

== ENCOUNTER → 2025-03-19 10:30 | Outpatient (BNV) | payer OTHER, SELFPAY | PROVIDERS: Visit Provider Radiology Diagnostic Radiology | DX: I83.11 Varicose veins of right lower extremity with inflammation (principal) | CPT/HCPCS: 93970 ==

== ENCOUNTER 2025-03-31 20:45 | Emergency (ER) | payer OTHER, SELFPAY ==
--- OUTSIDE RECORDS SUMMARY | 2019-09-11 11:20 | XMS_ITS | Continuity of Care Document ---
Author Organization [facility] vices Address [address] [place] [address] Phone Care Team Providers Care Concrete Conveyor Operator Name Role Phone Generic Provider, [facility] Unavailable Unavailabl e Allergies, Adverse Reactions, Alerts Substance Reaction Status Criticality No Known Allergies Active No Inform ation Procedures Procedure Date Psychotherapy, 45 Minutes With Patient J Psych Dx Eval Psychotherapy, 30 Minutes With Patient A OFFICE/OUTPATIENT VISIT, [facility] Advance Directives Directive Yes / No Effective Date File Name No Information Encounters Encounter Description Practice Location Reason(s) For Visit Diagnoses Date Provider Providers Copied on Encounter [facility], [address] [place] [address], [facility], [place] tel:[phone] [facility] Adult Medicine No Information 0 Generic Provider [facility]. . Psychotherap y, [address] [facility], [address] [place] [address], [facility], tel:[phone] [facility] Behavioral Health Follow up visit (chief complaint) Major depressive disorder, recurrent, moderateAnxiety Opioid dependence 0-201 9 [address]Long Cint[address]. [address] [place], [address], [place]. tel:[phone] [facility], [address] [place] [address], [facility], [place] tel:[phone] [facility] Behavioral Health anxiety (chief complaint) AnxietyOpioid dependence 4-201 9 [facility]Long C[facility]. [address] [place] [address], [address], [place]. tel:[phone] Psychotherap y, [address] [facility], [address] [place], [address], [place] tel:[phone] [facility] Behavioral Health Consult (chief complaint) AnxietyOpioid dependence 9 Liz Cintia. [address] [place], [address], [place]. tel:[phone] OFFICE/OUTPA TIENT VISIT, [facility], [address] [facility], [address], [place] tel:[phone] [facility] Adult Medicine Fell in shower (chief complaint) Body mass index (BMI) 30.0-30.9, adultSyncope, unspecified syncope typeFrequent headachesPhysic al examScreening for lipid disordersScreen ing for thyroid disorderScreeni ng for diabetes mellitusMemory loss 9 No Information Family History Family Member Type Diagnosis Age At Onset No Information Payers Payer name Insurance type Covered green party ID Danika wise(s) Tobias [id number] Social History Type Description Quantity Date Captured [...] lives at home. She was seen by [facility] and sent to neurology at but doesn't [...]
--- NOTE | 2025-03-31 | ECG_ITS ---
Test Reason : CHEST PAIN Blood Pressure : */* mmHG Vent. Rate : 101 BPM Atrial Rate : 101 BPM P-R Int : 136 ms QRS Dur : 86 ms QT Int : 372 ms P-R-T Axes : 49 -28 30 degrees QTcB Int : 482 ms Sinus tachycardia Otherwise normal ECG When compared with ECG of 25-Aug-2024 13:30, No significant change was found Referred By: Generic ED Physician Electronically Signed By: Ryan Witt
--- NOTE | ~2025-03-31 | XR_ITS ---
CLINICAL HISTORY: cp 2 view chest x-ray Comparison: CT/SR - CT ANGIO CHEST PE PROTOCOL - 08/25/24 14:18 EST CR - XR CHEST 1V - 08/25/24 13:30 EST Findings: The lungs are clear. Normal size heart. No acute fracture. IMPRESSION: 1. No acute findings. This document has been electronically signed by: Joselyn Shankar MD on 03/31/2025 22:12:47
--- NOTE | ~2025-03-31 | CT_ITS ---
CLINICAL HISTORY: Right Sided Pain; Hematuria CT abdomen and pelvis with contrast Comparison: CT/SR - CT ANGIO CHEST PE PROTOCOL - 08/25/24 14:18 EST Findings: CT abdomen: Lung bases are clear. No acute bony lesion. No focal hepatic lesions. Minor intrahepatic and extrahepatic biliary ductal dilatation. Common bile duct measures up to 8 mm in transverse measurement. No discrete intraluminal filling defects seen within the common bile duct. Subtle areas of heterogeneity in the gallbladder suggests thickened sludge or noncalcified stones. No gallbladder wall thickening or pericholecystic fluid. Spleen, pancreas, adrenal glands, and kidneys are unremarkable for acute findings. No dilated small bowel. No free fluid or free air. CT pelvis: Appendix is normal. No colonic wall thickening or pericolonic inflammatory stranding. Urinary bladder is mildly distended. No bladder calculi. No bladder wall thickening. Uterus and adnexa are unremarkable. IMPRESSION: 1. Minor biliary ductal dilatation as above with potential noncalcified stones or thickened sludge within the gallbladder. Correlation with the patient's bilirubin level suggested. If the patient has elevated bilirubin, MRCP would be suggested for further evaluation. 2. Otherwise, no acute findings. This document has been electronically signed by: Jos De MD on 04/01/2025 02:53:04
[2025-03-31 20:55] VITALS: BP 168/81; PULSE 97; RESP 15; TEMP 36.8; O2SAT 98; BMI 33.2
[2025-03-31 22:11] LABS: MANUAL DIFF FLAG NO
[2025-03-31 22:12] LABS: Hematocrit 35.2 % (37.0-47.0); Hemoglobin 12.2 g/dl (12.0-16.0); Imm Gran Abs Auto 0.03 X10*3/uL (0.00-0.03); Imm Gran Pct Auto 0.3 % (0.0-0.4); Lymphocytes Absolute Auto 1.1 X10*3/uL (1.2-4.9); Mean Corpuscular HGB Conc 34.7 g/dl (31.0-35.0); Mean Corpuscular Hemoglobin 31.2 pg (27.0-33.0); Mean Corpuscular Volume 90.0 fL (80.0-98.0); NRBC Abs Auto 0.000 X10*3/uL (0.0-0.012); NRBC Pct Auto 0.0 /100WBC (0.0-0.2); Platelet Count 235 X10*3/uL (160-400); Red Blood Count 3.91 X10*6/uL (4.20-5.50); White Blood Count 8.8 X10*3/uL (4.8-10.8)
[2025-03-31 22:29] LABS: Alanine Aminotransferase 20 U/L (0-31); Albumin Level 4.2 g/dL (3.5-5.0); Alkaline Phosphatase 115 U/L (39-117); Anion Gap 11 (12-20); Aspartate Amino Transferase 23 U/L (5-31); Blood Urea Nitrogen 12 mg/dL (9-16); Calcium 8.9 mg/dL (8.4-10.2); Carbon Dioxide 27 mmol/L (22-29); Chloride 106 mmol/L (96-108); Creatinine Clr Calc Pharmacy 65.6; Estimated Glomerular Filt Rate > 60; IDNOW Serial# 55D5AD1C; Influenza B2 Negative (Negative); Lipase 6 U/L (8-78); Potassium 3.7 mmol/L (3.3-5.1); Sodium 140 mmol/L (135-145); Total Protein 7.7 g/dL (6.5-8.0)
[2025-03-31 22:30] LABS: COVID-19 Test Negative (Negative); IDNOW Serial# 58CA691E
[2025-03-31 22:37] LABS: Troponin-I High Sensitivity < 2.7 ng/L (<3.5-17.0)
--- OUTSIDE RECORDS SUMMARY | 2025-04-01 00:04 | XMS_ITS | Clinical Summary ---
Author Organization [employer] Address [address] [facility] [address] [place] [address] Care Team Providers Care Security Field Supervisor Name Role Phone Unavailable Primary Care Provider Unavailabl e Encounters Date Type Department Care Team Description 01/14/2025 Telephone [facility] [address] [place] [address] Raghavendra Arthur MD New Patient from Last [...]
[2025-04-01 00:35] VITALS: BP 144/80; PULSE 93; RESP 16; O2SAT 98
--- NOTE | 2025-04-01 00:38 | ED_ITS ---
HPI - Chest Pain General Chief Complaint: Chest Pain Stated Complaint: cp Time Seen by Provider: 04/01/25 00:36 Source: patient Mode of arrival: ambulatory Limitations: no limitations History of Present Illness ED Provider: Luis LOPEZ HPI narrative: The patient is a 54-year-old female presenting to the emergency department reporting 3 hours ago she developed acute onset right-sided chest pain, immediately inferior to the right breast, worse with deep respiration, which began radiating into the left chest. The patient reports pain is reproducible with deep respiration and movement, not reproducible with palpation. The patient denies associated fever/chills, cough, hemoptysis, nausea, vomiting, diarrhea, abdominal pain, recent sick contacts, or recent trauma. The patient denies recent travel, or lower extremity complaint. Related Data Previous Rx's ?Medication ?Instructions ?Recorded meloxicam 15 mg tablet 15 mg PO DAILY #7 tabs 06/19 ibuprofen 600 mg tablet 600 mg PO TID PRN fever or p ain 01/14/25 #30 tabs acetaminophen 500 mg capsule 1,000 mg (2 x 500 mg) PO .q8 PRN 04/01/25 fever or pain #30 caps ibuprofen 600 mg tablet 600 mg PO Q8H PRN fever or p ain 04/01/25 #30 tabs Allergies Allergy/AdvReac Type Severity Reaction Status Date / Time metoclopramide (From Reglan) Allergy Shakiness Verified 03/31/25 20:57 Review of Systems 2 Review of Systems: Yes all other systems are reviewed and are negative PMFSH Social History Social History Smoked in Last 30 Days: No Use of substances other than those prescribed or required for medical reasons: No Advance Directives: No Advance Directives Information Provided: Yes Do you have a plan to hurt others: No Plan Patient : No Physical Exam 2 Vital Signs: Vital Signs: Last Vital Signs Temp 98.4 F 04/01/25 04:13 Pulse 61 04/01/25 04:13 Resp 16 04/01/25 04:13 BP 103/56 L 04/01/25 04:13 Pulse Ox 96 04/01/25 04:13 O2 Del Method Room Air 04/01/25 04:13 BMI result Body Mass Index 33.2 CONSTITUTIONAL: The patient appears uncomfortable but otherwise non-toxic, well nourished and in no acute distress. Vital signs as documented. HEAD: Atraumatic, normocephalic. EYES: EOMs grossly intact, pupils equal, conjunctiva clear, no exudate. ENT: Nares patent, no discharge. Airway patent, no audible stridor, visible mucosa is pink and moist without noted lesions. NECK: Trachea is midline, no obvious masses or gross abnormalities. CHEST: No tenderness to palpation, unable to reproduce pain with direct palpation. Symmetric movement, normal appearance. LUNGS: LS present and CTAB, no w/r/r. Non-labored work of breathing. CARDIAC: Regular Rhythm, S1/S2 appreciated, no murmurs, rubs or gallops. ABDOMEN: Abdomen soft and non-tender x4 quadrants, no palpable masses or organomegaly. : Deferred. EXTREMITIES: Normal tone, moves all extremities spontaneously without reported pain. No obvious acute injury or deformity noted. NEURO: Alert and oriented x3, CN II-XII appear grossly intact. Cerebellar Functioning grossly intact. No obvious sensory or motor deficits. Speech clear and appropriate. PSYCH: normal affect, appropriate eye contact, fluid speech, with appropriate response to questioning. No reported suicidality or homicidality. SKIN: Warm, dry, color appropriate, normal turgor. No rashes noted. Medications Administered Discontinued Medications Generic Name Dose Route Start Last Admin Trade Name Freq PRN Reason Stop Dose Admin Acetaminophen 975 mg 04/01/25 01:25 04/01/25 01:31 Acetaminophen 325 Mg Tablet PO 04/01/25 01:26 975 mg ONCE ONE Administration Iohexol 85 ml 04/01/25 02:11 04/01/25 02:11 Iohexol 350 Mg/Ml 100 Ml Infus..Btl IV 04/01/25 02:12 85 ml ONCE ONE Administration Ketorolac Tromethamine 15 mg 04/01/25 01:41 04/01/25 02:00 Ketorolac Tromethamine 15 Mg/Ml Vial IVPUSH 04/01/25 01:42 15 mg ONCE ONE Administration Morphine Sulfate 4 mg 04/01/25 01:05 04/01/25 01:25 Morphine Sulfate 4 Mg/Ml Cartridge IVPUSH 04/01/25 01:06 Not Given ONCE ONE Protocol Medical Decision Making Medical Decision Making MDM Narrative: 1:42 AM 04/01/2025 (Ruben LOPEZ): The patient is a 54-year-old female presenting to the emergency department reporting 3 hours ago she developed acute onset right-sided chest pain, immediately inferior to the right breast, worse with deep respiration, which began radiating into the left chest. The patient reports pain is reproducible with deep respiration and movement, not reproducible with palpation. The patient denies associated fever/chills, cough, hemoptysis, nausea, vomiting, diarrhea, abdominal pain, recent sick contacts, or recent trauma. The patient denies recent travel, or lower extremity complaint. In the ED patient appears uncomfortable, but is otherwise nontoxic and in no acute distress. The patient's EKG is nonischemic, troponin is negative, laboratory evaluation reveals no leukocytosis, significant anemia, electrolyte abnormality, or [place]. Patient's LFTs are unremarkable. Lipase is normal. The patient's urinalysis shows moderate blood, with no evidence of infection. Viral swabs are negative, chest x-ray shows no focal consolidation. The patient was sent for a D-dimer which has resulted and is negative. At this time , due to the patient's acute onset of pain, with hematuria on urinalysis, and negative D- dimer, rather than CTA chest we will obtain CT abdomen and pelvis to rule out ureterolithiasis. 3:03 AM 04/01/2025 (Ruben LOPEZ): Patient's CT shows no renal stones, however there is calcified gallstones and biliary sludge noted in the gallbladder. No evidence of acute cholecystitis, Patient's LFTs are unremarkable, T bili is normal, no indication for admission for emergent MRCP. We will reassess for improvement following interventions. 5:30 AM 04/01/2025 (Ruben LOPEZ): Patient reports feeling improvement in symptoms following Toradol administration. The patient was educated regarding CT results and need for nonemergent outpatient follow up for ultrasound and consideration of MRCP. Patient was advised to continue anti-inflammatories for pain. Additionally patient was instructed to return to the ED with worsening pain, recurrent vomiting, or fever greater than 100.4 which does not improve with Tylenol or ibuprofen. Patient and her stated their understanding of reasons to return to the ED. the patient reports she does not currently have a PCP as she recently moved to the area from [place], patient will be provided contact numbers for establishing a new PCP, as well as GI referral in the event patient does not require PCP referral for specialist consultation. Admission/Observation Consideration of admission/observation: Escalation of care including admission/observation considered Lab Data MDM Lab Attestation statement: I reviewed the patient's lab results. 03/31/25 21:58 03/31/25 21:58 Labs: Lab Results 03/31/25 04/01/25 Range/Units 21:58 01:11 WBC 8.8 (4.8-10.8) X10*3/uL RBC 3.91 L (4.20-5.50) X10*6/uL Hgb 12.2 (12.0-16.0) g/dl Hct 35.2 L (37.0-47.0) % MCV 90.0 (80.0-98.0) fL MCH 31.2 (27.0-33.0) pg MCHC 34.7 (31.0-35.0) g/dl RDW 12.5 (11.0-16.0) % Plt Count 235 (160-400) X10*3/uL MPV 10.3 (9.4-12.3) fL Immature Gran % (Auto) 0.3 (0.0-0.4) % Neut % (Auto) 78.4 H (45-73) % Lymph % (Auto) 12.0 L (20-40) % Gaines % (Auto) 9.1 (2-11) % Eos % (Auto) 0.0 (0-4) % Baso % (Auto) 0.2 (0-2) % Lymph # (Auto) 1.1 L (1.2-4.9) X10*3/uL Gaines # (Auto) 0.8 (0.1-1.2) X10*3/uL Eos # (Auto) 0.0 (0.0-0.4) X10*3/uL Baso # (Auto) 0.0 (0.0-0.2) X10*3/uL Abs Immat Gran (auto) 0.03 (0.00-0.03) X10*3/uL Absolute Neuts (auto) 6.9 (2.0-8.3) x10*3/uL Absolute Nucleated RBC 0.000 (0.0-0.012) X10*3/uL Nucleated RBC % (auto) 0.0 (0.0-0.2) /100WBC D-Dimer High Sensitivty 206 NG/ML Sodium 140 (135-145) mmol/L Potassium 3.7 (3.3-5.1) mmol/L Chloride 106 (96-108) mmol/L Carbon Dioxide 27 (22-29) mmol/L Anion Gap 11 L (12-20) BUN 12 (9-16) mg/dL Creatinine 0.90 (0.5-1.4) mg/dL Estim Creat Clear Calc 65.6 Estimated GFR > 60 Random Glucose 116 H (60-115) mg/dL Calcium 8.9 (8.4-10.2) mg/dL Total Bilirubin 0.8 (0.0-1.0) mg/dL AST 23 (5-31) U/L ALT 20 (0-31) U/L Alkaline Phosphatase 115 (39-117) U/L Troponin I High Sens < 2.7 (<3.5-17.0) ng/L Total Protein 7.7 (6.5-8.0) g/dL Albumin 4.2 (3.5-5.0) g/dL Lipase 6 L (8-78) U/L Urine Color Yellow Urine Appearance Clear Urine pH 8.0 (5.0-9.0) Ur Specific Felton 1.015 (1.005-1.025) Urine Protein Negative (Neg-Trace) mg/dL Urine Glucose (UA) Negative (Negative) mg/dL Urine Ketones Negative (Negative) mg/dL Urine Blood Moderate (2+) H (Negative) Urine Nitrite Negative (Negative) Ur Leukocyte Esterase Negative (Negative) Urine RBC >20 H (0-2) /HPF Urine WBC 0-5 (0-5) /HPF Ur Squamous Epith Cells 0-2 (0-2) /HPF Urine Bacteria None Seen (None Seen) Hyaline Casts 0-2 (0-2) /LPF COVID-19 (JAILENE) Negative (Negative) COVID-19 Clin Com See Note Influenza Type A (SETFANIE) Negative (Negative) Influenza Type B (STEFANIE) Negative (Negative) Influenza A & B Note See Note Independent Interpretation I performed an independent interpretation of an: EKG (EKG shows sinus tachycardia with a rate of 101, no evidence of acute ischemia, no ST elevation, no ectopy. QTC 482. Compared to previous on 08/25/2024 there was no significant morphology changes. ) Radiology Impression Discussion of test interpretation with radiology: I have reviewed the radiologist's reading. Radiologist Impression: CT abdomen: Lung bases are clear. No acute bony lesion. No focal hepatic lesions. Minor intrahepatic and extrahepatic biliary ductal dilatation. Common bile duct measures up to 8 mm in transverse measurement. No discrete intraluminal filling defects seen within the common bile duct. Subtle areas of heterogeneity in the gallbladder suggests thickened sludge or noncalcified stones. No gallbladder wall thickening or pericholecystic fluid. Spleen, pancreas, adrenal glands, and kidneys are unremarkable for acute findings. No dilated small bowel. No free fluid or free air. CT pelvis: Appendix is normal. No colonic wall thickening or pericolonic inflammatory stranding. Urinary bladder is mildly distended. No bladder calculi. No bladder wall thickening. Uterus and adnexa are unremarkable. IMPRESSION: 1. Minor biliary ductal dilatation as above with potential noncalcified stones or thickened sludge within the gallbladder. Correlation with the patient's bilirubin level suggested. If the patient has elevated bilirubin, MRCP would be suggested for further evaluation. 2. Otherwise, no acute findings. This document has been electronically signed by: Jos De MD on 04/01/2025 02:53:04 External Record Review External record reviewed: Outpatient record and Prior outpatient labs Prescription Management I considered prescription management with: Pain Medication Discharge Plan Discharge Clinical Impression: Biliary colic Patient Disposition: Home, Self-Care Instructions: Biliary Colic (ED), Gallstones (ED) Additional Instructions: Thank you for choosing [facility]'s Emergency Department for your care today. Thankfully your laboratory evaluation, EKG, chest x-ray, viral swab, CT abdomen, urinalysis, and exam today are reassuring. Your testing was negative for a blood clot in your chest. At this time there is no indication for admission to the hospital or continued ED observation, and it is safe to discharge you home. Your CT abdomen does show evidence of dilation of your common bile duct with common bile duct sludge/stones, thankfully there is no evidence of a complete common bile duct obstruction on your laboratory evaluation and as such it is safe to discharge you for an outpatient ultrasound, GI specialist consultation, and consideration of MRCP to remove the sludge/stones. You may take alternating (staggered) doses of ibuprofen 600mg and Tylenol 1000mg every 4 hours as needed for any additional pain. Please stay well hydrated and get plenty of rest. Please follow up with your primary care physician for re-evaluation, referral to a GI specialist, additional management of your symptoms, and continued preventative care. If you do not have a primary care physician, please call the [facility] at [phone] to establish a new primary care physician. While waiting to establish your new primary care physician, you can call our [facility] at [phone] for non-emergency needs. Please return to the emergency department if you develop a severe or sudden change in your symptoms, a fever over 100.4 that does not improve with Tylenol or Ibuprofen, recurrent vomiting, or any other new or worsening symptoms or concerns. Prescriptions: New ibuprofen 600 mg tablet 600 mg PO Q8H PRN (Reason: fever or pain) Qty: 30 0RF acetaminophen 500 mg capsule 1,000 mg PO .q8 PRN (Reason: fever or pain) Qty: 30 0RF No Action meloxicam 15 mg tablet 15 mg PO DAILY Qty: 7 0RF ibuprofen 600 mg tablet 600 mg PO TID PRN (Reason: fever or pain) Qty: 30 0RF Referrals: [facility] [place] [place] [facility] [Provider Group, Gastroenterology] Clinical Impression: Biliary colic Print Language: Tajik
[2025-04-01 01:19] LABS: Appearance Urine Clear; Glucose Urine UA Negative (Negative); PH 8.0 (5.0-9.0); Specific Gravity - Urine 1.015 (1.005-1.025); UMIC TRIGGER UA YES
[2025-04-01 01:26] LABS: D Dimer High Sensitivity 206 NG/ML
[2025-04-01] MEDS: iohexoL 350 MG/ML 100 ML INFUS..BTL 85 ML IV (02:11)
[2025-04-01 04:13] VITALS: BP 103/56; PULSE 61; RESP 16; TEMP 36.9; O2SAT 96
[2025-04-01 05:48] VITALS: BP 103/56; PULSE 61; RESP 16; TEMP 36.9; O2SAT 96
== END 2025-04-01 05:48 | disposition home or self-care (01) ==
PROVIDERS: Physician Assistant; Emergency Provider Emergency Medicine Emergency Medical Services
DX: K80.50 Calculus of bile duct without cholangitis or cholecystitis without obstruction (principal); Z79.899 Other long term (current) drug therapy
CPT/HCPCS: 36415; 71046; 74177; 80053; 81001; 83690; 84484; 85025; 85379; 87502; 87635; 93005; 96374; 99284; 99285; J1885; Q9967

== ENCOUNTER → 2025-03-31 20:51 | Outpatient (BNV) | payer OTHER, SELFPAY | PROVIDERS: Emergency Provider Emergency Medicine Emergency Medical Services; Visit Provider Internal Medicine Cardiovascular Disease | DX: R00.0 Tachycardia, unspecified (principal) | CPT/HCPCS: 93010 ==

== ENCOUNTER → 2025-03-31 21:25 | Outpatient (BNV) | payer OTHER, SELFPAY | PROVIDERS: Visit Provider Student in an Organized Health Care Education/Training Program | DX: R07.89 Other chest pain (principal) | CPT/HCPCS: 71046 ==

== ENCOUNTER → 2025-04-01 01:49 | Outpatient (BNV) | payer OTHER, SELFPAY | PROVIDERS: Emergency Provider Emergency Medicine Emergency Medical Services; Visit Provider Radiology Diagnostic Radiology | DX: K80.80 Other cholelithiasis without obstruction (principal); R10.31 Right lower quadrant pain | CPT/HCPCS: 74177 ==

== ENCOUNTER 2025-04-08 07:05 | Emergency (ER) | payer OTHER, SELFPAY ==
--- OUTSIDE RECORDS SUMMARY | 2019-09-11 11:20 | XMS_ITS | Continuity of Care Document ---
Author Organization Counts Include [facility] vices Address [address] [place] [address] Phone Care Team Providers Care Communication Coordinator Name Role Phone Generic Provider, [facility] Unavailable Unavailabl e Allergies, Adverse Reactions, Alerts Substance Reaction Status Criticality No Known Allergies Active No Inform ation Procedures Procedure Date Psychotherapy, 45 Minutes With Patient J Psych Dx Eval Psychotherapy, 30 Minutes With Patient A OFFICE/OUTPATIENT VISIT, [facility] Advance Directives Directive Yes / No Effective Date File Name No Information Encounters Encounter Description Practice Location Reason(s) For Visit Diagnoses Date Provider Providers Copied on Encounter [facility], [address] [place] [address], [facility], [place] tel:[phone] [facility] Adult Medicine No Information 0 Generic Provider [facility]. . Psychotherap y, 45 Minutes With Patient [facility], [address] [place] [address], [facility], tel:[phone] [facility] Behavioral Health Follow up visit (chief complaint) Major depressive disorder, recurrent, moderateAnxiety Opioid dependence 0-201 9 Mario-Long Cintia. [address] [place], [address], [place]. tel:[phone] Psych Dx Eval [facility], [address] [place] [address], [facility], [place] tel:[phone] [facility] Behavioral Health anxiety (chief complaint) AnxietyOpioid dependence 4-201 9 Mario-Long Cintia. [address] [place] [address], [address], [place]. tel:[phone] Psychotherap y, 30 Minutes With Patient [facility], [address] [place], [address], [place] tel:[phone] [facility] Behavioral Health Consult (chief complaint) AnxietyOpioid dependence 9 Liz Cintia. [address] [place], [address], [place]. tel:[phone] OFFICE/OUTPA TIENT VISIT, [facility], [address] [place], [address], [place] tel:[phone] [facility] Adult Medicine Fell in shower (chief complaint) Body mass index (BMI) 30.0-30.9, adultSyncope, unspecified syncope typeFrequent headachesPhysic al examScreening for lipid disordersScreen ing for thyroid disorderScreeni ng for diabetes mellitusMemory loss 9 No Information Family History Family Member Type Diagnosis Age At Onset No Information Payers Payer name Insurance type Covered republican ID Danika wise(s) Tobias [id number] Social History Type Description Quantity Date Captured Comments Alcohol Use Details Unknown Caffeine Use Details Unknown Tobacco Use Status No Information Smoking Status No Information Sex Female Sexual Orientation Straight or heterosexual Sep Gender Identity Female Chief Complaint And Reason For Visit No Information Reason For Referral Reason For Referral No Information Plan Of Treatment Date Type Action Status Goal Tobacco cessation counseling completed Goal Dietary management education , guidance, and counseling completed Referral Ordered: Referrals: Neurology. Evaluate and treat Appointment date/timeframe: 10/17/2018 ordered History Of Present Illness Encounter Date Complaint History Of Prese nt Illness Follow up visit anxiety Consult Fell in shower Pt reports she p assed out and fell in the shower 2 hours ago. She reports frequent hx of passing out. this first started happening 1 year ago without etiology and it makes her more concerned for her safety since she lives at home. She was seen by [facility] and sent to neurology at but doesn't feel like the neurologist was interested in the syncope only wanted to talk about her migrans. she reports no hx of any scans to brain for any reason. She reports 6 months ago she fell down the stair during one of these events and at work she will zone out and type nonsense or lose track of complete conversation. She is neurologically intact on exam there is an abrasion on left shoulder and some tenderness on back of head. She is neurologically intact. Blood pressure elevated today. 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 Functional Status Date Functional Assessmen t No Information Instructions Date Instruction Additional Infor mation Losing time in conve rsation dd include malignancy of brain will get MRI cannot rule out underlying seizure disorder or potentially narcoplexy. Related to Memory loss Weight monitoring Related to Bod y mass index (BMI) 30.0-30.9, adult Dietary management e ducation, guidance, and counseling Related to Body mass index (BMI) 30.0-30.9, adult Assessments Type Assessment Date No Information Patient Care Teams Name Effective Dates (start - stop) Status Members No Information
--- NOTE | 2025-04-08 07:20 | ED_ITS ---
HPI - General Adult General Chief complaint: Headache Stated complaint: N/V/D Time Seen by Provider: 04/08/25 07:20 Source: patient, RN notes reviewed and old records reviewed Mode of arrival: ambulatory Limitations: no limitations History of Present Illness ED Provider: Toro RAZO narrative: Patient is a 54-year-old female with history of migraines presenting to the emergency department with complaint of headache, nausea and vomiting since this morning which she states feels typical for 1 of her migraines. Did not take any [id number]-pwlwnxd medications prior to arrival. Denies any abdominal pain or diarrhea. Denies hematemesis. Denies any blurred vision, double vision or other visual changes. States that she has a reaction to Reglan which causes shakiness but she is willing to try if pre-medicated with benadryl. complaint: headache Related Data Previous Rx's ?Medication ?Instructions ?Recorded meloxicam 15 mg tablet 15 mg PO DAILY #7 tabs 06/19 ibuprofen 600 mg tablet 600 mg PO TID PRN fever or p ain 01/14/25 #30 tabs acetaminophen 500 mg capsule 1,000 mg (2 x 500 mg) PO .q8 PRN 04/01/25 fever or pain #30 caps ibuprofen 600 mg tablet 600 mg PO Q8H PRN fever or p ain 04/01/25 #30 tabs Allergies Allergy/AdvReac Type Severity Reaction Status Date / Time metoclopramide (From Reglan) Allergy Shakiness Verified 04/08/25 07:30 Review of Systems 2 Review of Systems: As per HPI Yes all other systems are reviewed and are negative PMFSH Social History Social History Smoked in Last 30 Days: No Use of substances other than those prescribed or required for medical reasons: No Advance Directives: No Advance Directives Information Provided: No Physical Exam ED Vital Signs: Vital Signs - 24 hr 04/08/25 07:27 04/08/25 07:33 04/08/25 08:06 Temperature 99.2 F Pulse Rate 64 70 81 Respiratory Rate 15 18 16 Blood Pressure 161/70 H 150/90 H 168/73 H Pulse Oximetry 100 100 98 Oxygen Delivery Method Room Air Room Air Room Air BMI result Body Mass Index 32.8 Vital signs have been reviewed and appear to be correct. Blood pressure normal. Heart rate normal. Respiratory rate normal. Temperature normal. Oxygen saturation normal. Medications Administered Discontinued Medications Generic Name Dose Route Start Last Admin Trade Name Riya PRN Reason Stop Dose Admin Diphenhydramine HCl 25 mg 04/08/25 07:27 04/08/25 07:48 Diphenhydramine Hcl 50 Mg/Ml Vial IVPUSH 04/08/25 07:28 25 mg ONCE ONE Administration Sodium Chloride 1,000 mls @ 999 mls/hr 04/08/25 07:30 04/08/25 07:48 Ns IV 04/08/25 08:30 999 mls/hr .Q1H1M ESTEPHANIE Administration Ketorolac Tromethamine 15 mg 04/08/25 07:27 04/08/25 07:49 Ketorolac Tromethamine 15 Mg/Ml Vial IVPUSH 04/08/25 07:28 15 mg ONCE ONE Administration Metoclopramide HCl 10 mg 04/08/25 07:27 04/08/25 07:48 Metoclopramide Hcl 10 Mg/2 Ml Vial IVPUSH 04/08/25 07:28 10 mg ONCE ONE Administration Medical Decision Making Medical Decision Making [facility] Narrative: Patient is a 54-year-old female with history of migraines presenting to the emergency department with complaint of headache, nausea and vomiting since this morning which she states feels typical for 1 of her migraines. On exam patient is awake, A+Ox3, VS WNL, afebrile, normal neurological exam without focal deficits, physical exam findings as above. Given reported symptoms and physical exam findings, initial differential includes but is not limited to migraine, tension headache, viral illness. No physical exam findings concerning for ICH/SAH, acute glaucoma, carotid artery dissection, CO poisoning, encephalitis, meningitis, preeclampsia, pseudotumor, temporal arteritis/giant cell arteritis. Labs grossly within normal limits. Viral serology negative. Will treat with IV fluids, Reglan, Benadryl and Toradol. Patient reports significant improvement and headache and nausea after medications given in the ED. States that she feels comfortable with discharge home but is drowsy and will call for a ride. Return precautions discussed. Patient verbalized understanding of and agreement with plan. Differential Diagnosis Differential Diagnoses: The differential diagnosis associated with the presentation includes as per [facility] Admission/Observation Consideration of admission/observation: Escalation of care including admission/observation considered Patient would have been admitted to the hospital and transferred to appropriate facility had their clinical presentation warranted hospital admission. Lab Data [facility] Lab Attestation statement: I reviewed the patient's lab results. as per [facility] 04/08/25 07:47 04/08/25 07:47 Labs: Lab Results 04/08/25 04/08/25 Range/Units 07:47 08:18 WBC 7.7 (4.8-10.8) X10*3/uL RBC 4.05 L (4.20-5.50) X10*6/uL Hgb 12.6 (12.0-16.0) g/dl Hct 35.4 L (37.0-47.0) % MCV 87.4 (80.0-98.0) fL MCH 31.1 (27.0-33.0) pg MCHC 35.6 H (31.0-35.0) g/dl RDW 12.0 (11.0-16.0) % Plt Count 322 D (160-400) X10*3/uL MPV 9.6 (9.4-12.3) fL Immature Gran % (Auto) 0.5 H (0.0-0.4) % Neut % (Auto) 75.2 H (45-73) % Lymph % (Auto) 16.7 L (20-40) % [place] % (Auto) 6.7 (2-11) % Eos % (Auto) 0.5 (0-4) % Baso % (Auto) 0.4 (0-2) % Lymph # (Auto) 1.3 (1.2-4.9) X10*3/uL [place] # (Auto) 0.5 (0.1-1.2) X10*3/uL Eos # (Auto) 0.0 (0.0-0.4) X10*3/uL Baso # (Auto) 0.0 (0.0-0.2) X10*3/uL Abs Immat Gran (auto) 0.04 H (0.00-0.03) X10*3/uL Absolute Neuts (auto) 5.8 (2.0-8.3) x10*3/uL Absolute Nucleated RBC 0.000 (0.0-0.012) X10*3/uL Nucleated RBC % (auto) 0.0 (0.0-0.2) /100WBC Sodium 143 (135-145) mmol/L Potassium 3.5 (3.3-5.1) mmol/L Chloride 106 (96-108) mmol/L Carbon Dioxide 27 (22-29) mmol/L Anion Gap 14 (12-20) BUN 9 (9-16) mg/dL Creatinine 0.81 (0.5-1.4) mg/dL Estim Creat Clear Calc 72.4 Estimated GFR > 60 Random Glucose 150 H (60-115) mg/dL Calcium 9.0 (8.4-10.2) mg/dL Total Bilirubin 0.6 (0.0-1.0) mg/dL AST 28 (5-31) U/L ALT 15 (0-31) U/L Alkaline Phosphatase 119 H (39-117) U/L Total Protein 7.8 (6.5-8.0) g/dL Albumin 4.0 (3.5-5.0) g/dL COVID-19 (JAILENE) Negative (Negative) COVID-19 Clin Com See Note Influenza Type A (STEFANIE) Negative (Negative) Influenza Type B (STEFANIE) Negative (Negative) Influenza A & B Note See Note External Record Review External record reviewed: Inpatient record, Office record and Outpatient record Discharge Plan Discharge Clinical Impression: Migraine Patient Disposition: Home, Self-Care Instructions: Migraine Headache (ED) Additional Instructions: You have been evaluated in the emergency department today for headache. Your evaluation did not show evidence of medical conditions requiring emergent intervention at this time, and your pain improved with medication in the ED. We recommend you take 600 mg ibuprofen every 6 hours or Tylenol 650 mg every 6 hours as needed for pain. If needed, you can alternate these medications so that you take 1 medication every 3 hours. For instance, at noon take ibuprofen, then at 3:00 p.m. take Tylenol, then at 6:00 p.m. take ibuprofen. Please follow-up with your primary care provider within 2 days. Return to the emergency department if you experience worsening or uncontrolled pain, vision changes, recurrent vomiting, difficulty with normal activities, abnormal behavior, difficulty walking, numbness, weakness, or any other concerning symptoms. Prescriptions: No Action ibuprofen 600 mg tablet 600 mg PO Q8H PRN (Reason: fever or pain) Qty: 30 0RF acetaminophen 500 mg capsule 1,000 mg PO .q8 PRN (Reason: fever or pain) Qty: 30 0RF meloxicam 15 mg tablet 15 mg PO DAILY Qty: 7 0RF ibuprofen 600 mg tablet 600 mg PO TID PRN (Reason: fever or pain) Qty: 30 0RF Print Language: Belarusian
[2025-04-08 07:27] VITALS: BP 161/70; PULSE 64; RESP 15; TEMP 37.3; O2SAT 100; BMI 32.8
[2025-04-08 07:32] VITALS: BP 150/90; PULSE 80; O2SAT 100
[2025-04-08 07:33] VITALS: BP 150/90; PULSE 70; RESP 18; O2SAT 100
[2025-04-08 07:50] LABS: MANUAL DIFF FLAG NO
[2025-04-08 07:54] LABS: Hematocrit 35.4 % (37.0-47.0); Hemoglobin 12.6 g/dl (12.0-16.0); Imm Gran Abs Auto 0.04 X10*3/uL (0.00-0.03); Imm Gran Pct Auto 0.5 % (0.0-0.4); Lymphocytes Absolute Auto 1.3 X10*3/uL (1.2-4.9); Mean Corpuscular HGB Conc 35.6 g/dl (31.0-35.0); Mean Corpuscular Hemoglobin 31.1 pg (27.0-33.0); Mean Corpuscular Volume 87.4 fL (80.0-98.0); NRBC Abs Auto 0.000 X10*3/uL (0.0-0.012); NRBC Pct Auto 0.0 /100WBC (0.0-0.2); Platelet Count 322 X10*3/uL (160-400); Red Blood Count 4.05 X10*6/uL (4.20-5.50); White Blood Count 7.7 X10*3/uL (4.8-10.8)
[2025-04-08 08:05] LABS: Alanine Aminotransferase 15 U/L (0-31); Albumin Level 4.0 g/dL (3.5-5.0); Alkaline Phosphatase 119 U/L (39-117); Anion Gap 14 (12-20); Aspartate Amino Transferase 28 U/L (5-31); Blood Urea Nitrogen 9 mg/dL (9-16); Calcium 9.0 mg/dL (8.4-10.2); Carbon Dioxide 27 mmol/L (22-29); Chloride 106 mmol/L (96-108); Creatinine Clr Calc Pharmacy 72.4; Estimated Glomerular Filt Rate > 60; Potassium 3.5 mmol/L (3.3-5.1); Sodium 143 mmol/L (135-145); Total Protein 7.8 g/dL (6.5-8.0)
[2025-04-08 08:06] VITALS: BP 168/73; PULSE 81; RESP 16; O2SAT 98
[2025-04-08 08:40] LABS: COVID-19 Test Negative (Negative); IDNOW Serial# 55D5AD1C
[2025-04-08 08:41] LABS: IDNOW Serial# 58CA691E; Influenza B2 Negative (Negative)
--- OUTSIDE RECORDS SUMMARY | 2025-04-08 09:05 | XMS_ITS | Clinical Summary ---
Author Organization [employer] Address [address] [place] [address] Care Team Providers Care Center Consultant Name Role Phone Unavailable Primary Care Provider Unavailabl e Encounters Date Type Department Care Team Description 01/14/2025 Telephone [facility] [address] [place] [address] Raghavendra Arthur MD New Patient from Last [...]
[2025-04-08 10:01] VITALS: BP 141/74; PULSE 70; RESP 12; TEMP 37.5; O2SAT 94
== END 2025-04-08 10:23 | disposition home or self-care (01) ==
PROVIDERS: Registered Nurse Emergency; Emergency Provider Emergency Medicine
DX: G43.909 Migraine, unspecified, not intractable, without status migrainosus (principal); R11.2 Nausea with vomiting, unspecified; Z03.818 Encounter for observation for suspected exposure to other biological agents ruled out
CPT/HCPCS: 36415; 80053; 85025; 87502; 87635; 96361; 96374; 96375; 99284; J1200; J1885; J2765